=== PATIENT | male | born 1940 | race Caucasian/White ===

== ENCOUNTER 2018-11-14 09:07 | Emergency (ER) | payer OTHER ==
--- NOTE | 2018-11-14 09:43 | EKG REPORT ---
SEVERITY:- ABNORMAL ECG - SINUS RHYTHM VENTRICULAR TRIGEMINY RIGHT BUNDLE BRANCH BLOCK : Confirmed by: Allen Pyle MD 14-Nov-2018 09:42:54
[2018-11-14 09:46] LABS: ABSOLUTE LYMPHOCYTES (AUTO) 0.8 10^3/uL (0.5-4.7); ABSOLUTE NEUT (AUTO) 12.3 10^3/uL (1.7-8.2); BASOPHILS % (AUTO) 0.2 % (0-2); EOSINOPHILS % (AUTO) 0.3 % (0-6); HEMOGLOBIN 14.9 g/dL (13.5-17.0); LYMPHOCYTES % (AUTO) 5.9 % (13-45); MEAN CORPUSCULAR HEMOGLOBIN 28.7 pg (27.0-33.4); MEAN CORPUSCULAR HGB CONC 33.8 g/dL (32.0-36.0); MEAN CORPUSCULAR VOLUME 85 fl (80-97); PLATELET COUNT 251 10^3/uL (150-450); RED BLOOD COUNT 5.19 10^6/uL (4.35-5.55); RED CELL DISTRIBUTION WIDTH 15.7 % (11.5-14.0); SEGMENTED NEUTROPHILS % (AUTO) 86.6 % (42-78); TOTAL CELLS COUNTED % (AUTO) 100 %; WHITE BLOOD COUNT 14.2 10^3/uL (4.0-10.5)
[2018-11-14 09:49] LABS: ALBUMIN 3.8 g/dL (3.5-5.0); ALKALINE PHOSPHATASE 48 U/L (38-126); ANION GAP 11 (5-19); ASPARTATE AMINO TRANSFERASE 51 U/L (17-59); BILIRUBIN,DIRECT 0.4 mg/dL (0.0-0.4); BLOOD UREA NITROGEN 28 mg/dL (7-20); CALCIUM 8.7 mg/dL (8.4-10.2); CARBON DIOXIDE 23 mmol/L (22-30); CHLORIDE 105 mmol/L (98-107); CREATINE KINASE 1191 U/L (55-170); GLUCOSE 152 mg/dL (75-110); POTASSIUM 4.3 mmol/L (3.6-5.0); TOTAL PROTEIN 6.6 g/dL (6.3-8.2)
[2018-11-14 10:01] LABS: CREATINE KINASE MB 8.97 ng/mL (<4.55); TROPONIN I 0.017 ng/mL
[2018-11-14 10:18] LABS: INTERNATIONAL RATION (INR) 2.24; PROTHROMBIN TIME 25.2 SEC (11.4-15.4)
--- NOTE | 2018-11-14 10:20 | ER Document Report ---
ED General - General Chief Complaint: General Weakness Stated Complaint: WEAKNESS Time Seen by Provider: 11/14/18 09:42 - HPI Notes: Patient is an 78-year-old male who presents emergency department for evaluation of general weakness and near syncope. He states he has had 3 episodes in the last few weeks. He was up in the middle the night to go to the bathroom. He started to feel dizzy and lightheaded. He made it to the bathroom but collapsed slowly to the floor. He denies hitting his head. No loss of consciousness, but he was unable to get up under his own power. He denies any neck or back pain. He denies any recent changes in his medicines. He does state that he keeps his blood pressure as low as possible in an effort to avoid heart attack and strokes. He recently drove in from [place] to visit family friends here. He lost his of 45 years back in August. Denies any associated chest pain, difficulty breathing. He states he has not been coughing. Has been eating and drinking normally. No urinary symptoms, no bowel movement issues. - Related Data Allergies/Adverse Reactions: No Known Allergies Allergy (Verified 11/14/18 09:53) Home Medications: Metoprolol, Lasix, nifedipine, Coumadin, lisinopril, statin Past Medical History - General Information source: Patient - Social History Smoking Status: Former Smoker Frequency of alcohol use: Occasional Drug Abuse: None Family History: Reviewed & Not Pertinent Patient has suicidal ideation: No Patient has homicidal ideation: No - Past Medical History Cardiac Medical History: Reports: Hx Hypercholesterolemia, Hx Hypertension Musculoskeletal Medical History: Reports Other - Lymphedema Past Surgical History: Reports: Hx Tonsillectomy Review of Systems - Review of Systems Constitutional: See HPI EENT: No symptoms reported Cardiovascular: No symptoms reported Respiratory: No symptoms reported Gastrointestinal: No symptoms reported Genitourinary: No symptoms reported Musculoskeletal: No symptoms reported Skin: No symptoms reported Neurological/Psychological: No symptoms reported Physical Exam - Vital signs Vitals: Temp Pulse Resp BP Pulse Ox 99.1 F 88 16 110/60 96 11/14/18 09:22 11/14/18 09:22 11/14/18 09:22 11/14/18 09:22 11/14/18 09:22 - Notes Notes: Vital signs reviewed, please refer to chart. Head is normocephalic, atraumatic. Pupils equal round, reactive to light. Neck is supple without meningismus. Heart is regular rate and rhythm. Lungs are clear to auscultation bilaterally. Abdomen is soft, nontender, normoactive bowel sounds throughout. Extremities without cyanosis, clubbing. Posterior calves are nontender. Peripheral pulses are equal. Skin is warm and dry. Patient is awake, alert, neurological exam is nonfocal. Course - Re-evaluation Re-evalutation: 11/14/18 10:19 Patient presents emergency department for evaluation of dizziness. EMS found him to be orthostatic. The patient takes Lasix because of lymphedema, he has no known history of congestive heart failure. He is given IV fluids. My strong suspicion is that the symptoms are all secondary to orthostasis. Laboratory investigations are pending. Because of his mild hypoxia we did go ahead and get a chest x-ray as well. We will continue to monitor. 11/14/18 15:57 Patient remained stable throughout the course of his stay. He was feeling significantly improved after fluids. At this point, he continues to be slightly unsteady on his feet, but he does not really have any criteria to stay in the hospital. He was given IV fluids for his elevated CPK. His renal function is altered, but not significantly. We were able to obtain a walker for this patient. He is going to stay with his friends before getting back to [facility]. I strongly encouraged him to follow-up with his primary care provider there. I encouraged him to decrease his Lasix dose. He voiced understanding. He is to return to the ED with worsening or new concerning symptoms of any sort. 11/14/18 15:59 11/14/18 17:30 Notified by nursing that patient was unable to get himself up under his own power to get into the car. I went back and evaluated the patient. He states is all secondary to knee pain. He has prednisone that he takes for his severe knee pain when it flares. He denies any otilio weakness. He states that if his pain were controlled he would be able to get into the car. I told him to go ahead and take 40 mg of his prednisone now. We will arrange transport home to his friend's house. The importance of having a family member or friend drive him back to [facility] was stressed repeatedly to this patient. He voiced understanding. - Vital Signs Vital signs: Temp Pulse Resp BP Pulse Ox 98.9 F 82 20 133/75 H 94 11/14/18 17:00 11/14/18 13:45 11/14/18 16:40 11/14/18 16:41 11/14/18 16:01 - Laboratory Result Diagrams: 11/14/18 09:23 11/14/18 09:23 Laboratory results interpreted by me: 11/14/18 11/14/18 11/14/18 09:18 09:23 09:23 WBC 14.2 H RDW 15.7 H Lymph % (Auto) 5.9 L Absolute Neuts (auto) 12.3 H Seg Neutrophils % 86.6 H PT BUN 28 H Creatinine 1.65 H Est GFR ( Amer) 49 L Est GFR (MDRD) Non-Af 40 L Glucose 152 H POC Glucose 151 H Creatine Kinase 1191 H CK-MB (CK-2) Urine Protein Urine Ketones Urine Urobilinogen Urine Ascorbic Acid 11/14/18 11/14/18 11/14/18 09:23 09:23 10:13 WBC RDW Lymph % (Auto) Absolute Neuts (auto) Seg Neutrophils % PT 25.2 H BUN Creatinine Est GFR ( Amer) Est GFR (MDRD) Non-Af Glucose POC Glucose Creatine Kinase CK-MB (CK-2) 8.97 H Urine Protein 30 H Urine Ketones TRACE H Urine Urobilinogen 2.0 H Urine Ascorbic Acid 40 H - Diagnostic Test Radiology reviewed: Reports reviewed Radiology results interpreted by me: 11/14/18 15:58 Chest X-Ray 11/14/18 09:43 IMPRESSION: NO ACUTE RADIOGRAPHIC FINDING IN THE CHEST. - EKG Interpretation by Me Additional EKG results interpreted by me: 11/14/18 10:20 Sinus mechanism with a rate of 76 bpm, bigeminy. Normal axis, right bundle branch block. No old studies available for comparison. Discharge - Discharge Clinical Impression: Generalized weakness, Non-traumatic rhabdomyolysis, Abnormal renal function Condition: Stable Disposition: HOME, SELF-CARE Instructions: Weakness (OM) Additional Instructions: Use walker as needed for ambulation. Decrease your Lasix dose to half. Your renal function was slightly abnormal today, with a creatinine of 1.6. Please have that rechecked with your primary care provider. If you develop worsening or new concerning symptoms of any sort, return immediately to the emergency department for reevaluation.
[2018-11-14 10:50] LABS: APPEARANCE,URINE SLIGHTLY-CLOUDY; BILIRUBIN,URINE NEGATIVE (NEGATIVE); COLOR,URINE YELLOW; GLUCOSE, URINE NEGATIVE (NEGATIVE); KETONES,URINE TRACE mg/dL (NEGATIVE); LEUKOCYTE ESTERASE,URINE NEGATIVE (NEGATIVE); NITRITE,URINE NEGATIVE (NEGATIVE); PROTEIN,URINE 30 mg/dL (NEGATIVE); URINE SPECIFIC GRAVITY 1.016
--- NOTE | 2018-11-14 11:15 | RADIOLOGY REPORT (SQ) ---
EXAM DESCRIPTION: CHEST 2 VIEWS COMPLETED DATE/TIME: 11/14/2018 11:08 am REASON FOR STUDY: hypoxia, weakness COMPARISON: None. EXAM PARAMETERS: NUMBER OF VIEWS: two views TECHNIQUE: Digital Frontal and Lateral radiographic views of the chest acquired. RADIATION DOSE: NA LIMITATIONS: none FINDINGS: LUNGS AND PLEURA: No opacities, masses or pneumothorax. No pleural effusion. MEDIASTINUM AND HILAR STRUCTURES: No masses or contour abnormalities. HEART AND VASCULAR STRUCTURES: Heart upper limits of normal size. No evidence for failure. BONES: No acute findings. HARDWARE: None in the chest. OTHER: No other significant finding. IMPRESSION: NO ACUTE RADIOGRAPHIC FINDING IN THE CHEST. TECHNICAL DOCUMENTATION: JOB ID: [id number] [employer]- All Rights Reserved Reading location - IP/workstation name: [email or web address]
[2018-11-14] MEDS ORDERED: NORMAL SALINE 1000 ML 1,000 ML IV ONE (11:25)
[2018-11-14] MEDS ORDERED: WARFARIN SODIUM 5 MG TABLET PO ONE (13:23)
[2018-11-14 19:19] VITALS: BP 149/71
== END 2018-11-14 20:38 | disposition home or self-care (01) ==
LOC: ER 09:07
DX: M62.82 Rhabdomyolysis (principal); R42 Dizziness and giddiness; R55 Syncope and collapse; R09.02 Hypoxemia; R26.81 Unsteadiness on feet; R94.4 Abnormal results of kidney function studies; I45.10 Unspecified right bundle-branch block; M25.569 Pain in unspecified knee; E78.5 Hyperlipidemia, unspecified; I89.0 Lymphedema, not elsewhere classified; Z79.899 Other long term (current) drug therapy; Z79.01 Long term (current) use of anticoagulants; Z87.891 Personal history of nicotine dependence
CPT/HCPCS: 93005; 99285; 96360; 36415; 82553; 82962; 82550; 83735; 85025; 85610; 80053; 81001; 84484; 71046; 93010; A9270; J7030